=== PATIENT | male | born 1960 | race Caucasian/White ===

== ENCOUNTER → 2018-04-20 12:01 | Outpatient (CLI) | payer OTHER | END | disposition home or self-care (01) | LOC: D.RT 12:01 | DX: Z02.71 Encounter for disability determination (principal) ==

== ENCOUNTER 2019-12-27 05:24 | Day surgery (SDC) | payer OTHER ==
[~2019-12-27] VITALS: Ht 175.3 cm; Wt 104.3 kg
[~2019-12-27 05:24] MED LIST: CLARITIN 10 MG10 MG PO; HYDROCHLOROTH12.5 M1 PO; LIPITOR10 MG PO; METOPROLOL TART50 MG PO; SINGULAIR10 MG PO
[2019-12-27 05:53] LABS: HEMATOCRIT 55.8 % (42.0-54.0); HEMOGLOBIN 18.7 g/dL (13.5-17.5); MCH 33.4 pg (26.0-34.0); MCHC 33.5 g/dL (31.0-37.0); MCV 99.6 fL (80.0-100.0); MEAN PLATELET VOLUME 8.2 fL (7.4-10.4); RBC 5.6 10x6/uL (4.20-6.10); RDW 12.9 % (11.5-14.5); WBC 6.3 10x3/uL (4.8-10.8)
[2019-12-27] MEDS ORDERED: ANTIBIOTIC (06:31)
[2019-12-27 06:36] VITALS: BP 117/74; Ht 175.3 cm; Wt 104.3 kg
--- NOTE | 2019-12-27 09:18 | NUR ---
0915-AMBULATED TO RESTROOM AND URINATED WITHOUT COMPLICATIONS. REMOVED IV WITH CATH INTACT,DISPOSED INTO SHARPS,COVERED WITH GUAZE,SECURED WITH MEDIPORE TAPE.
--- NOTE | 2019-12-27 10:04 | NUR ---
0929-REVIEWED POST OP INSTRUCTIONS AND WILL CALL TO SCHEDULE HIS OWN FOLLOW UP AT [facility]. ESCORTED OUT VIA W/C BY STAFF WITH CAB AWAITING TO DRIVE HOME
--- NOTE | 2019-12-27 10:46 | OP ---
PATIENT NAME: CLIFF COSBY MEDICAL RECORD: [id number] :60 LOCATION:[facility] ADMISSION DATE: SURGEON: ELIEZER KATZ MD DATE OF OPERATION: 12/27/2019 SURGEON: Eliezer Katz MD ANESTHESIA: TIVA by Leon Bass CRNA DIAGNOSES: Elevated PSA of 10.56 and also bladder outlet obstruction. PROCEDURE: Cystoscopy, transrectal ultrasound and prostate biopsy. FINDINGS: On cystoscopy, bladder neck obstruction with nonobstructive prostate. Vascular bladder with no bladder tumors seen. There are single ureteral orifices bilaterally. Prostate size is 23 grams with intraprostatic stones visible. CLINICAL HISTORY: This is a 59-year-old male, who has some obstructive voiding symptoms. He was found to have an elevated PSA of 10.56. He comes today to have a prostate biopsy. He was given [employer] environmental health aide to the OR. DESCRIPTION OF PROCEDURE: The patient was placed in lithotomy position after having been given IV sedation. He was then prepped and draped. A 17-Monegasque cystoscope with 30-degree lens was used for visualization. Findings are as outlined above. The site of obstruction seems to be the bladder neck. We then emptied the bladder through the cystoscope sheath and removed the scope. The transrectal ultrasound probe was then introduced. Prostate size measurements were obtained. Sextant biopsies were obtained with at least 3 cores from each sextant. Once the specimens were obtained, then the procedure was terminated. I will see the patient back in followup at [facility] to review the pathology results with him. TRANSINT:[id number] Voice Confirmation ID: [id number] DOCUMENT ID: [id number] ELIEZER KATZ MD at 1046 CC: [id number] DICTATION DATE: 12/27/19 0822 POLICY WRITER SALES: 12/27/19 1035 [facility] 12/27/19 [id number] [place] [address]
== END 2019-12-27 09:29 | disposition home or self-care (01) ==
LOC: D.OPS 05:24 → D.PAN 07:30 → D.OPS 07:30
PROVIDERS: Anesthesiology; ATTEND Urology
DX: R97.20 Elevated prostate specific antigen [PSA] (principal); N32.0 Bladder-neck obstruction